=== PATIENT | male | born 1995 | race Caucasian/White ===

== ENCOUNTER → 2017-01-19 | Day surgery (SDC) | payer OTHER ==
[~2017-01-19] MED LIST: ACETAMINOPHEN 1000 MG/100 ML VIAL IV ONE; BUPIVACAINE/EPINEPHRINE 0.25% 50 ML VIAL ONE; KETOROLAC TROMETHAMINE 30 MG/ML (IVP) VIAL IV PUSH ONE; LACTATED RINGER'S 1000 ML INJ 1,000 ML ONE; MEPERIDINE HCL 25 MG/ML VIAL ONE; METHYLENE BLUE 100 MG/10 ML VIAL ONE; MIDAZOLAM HCL 2 MG/2 ML VIAL ONE; ONDANSETRON HCL 4 MG/2 ML VIAL IV PUSH ONE; PROPOFOL 200 MG/20 ML AMP IV ONE; ceFAZolin INJ 1,000 MG VIAL ONE
--- NOTE | 2017-01-19 11:07 | TN ---
cc: CHILANGO WHITFIELD M.D., JOHN C. DO DATE OF SURGERY: 01/19/2017 PREOPERATIVE DIAGNOSIS Pilonidal sinus. POSTOPERATIVE DIAGNOSIS Pilonidal sinus. PROCEDURE Excision of complex pilonidal. ANESTHESIA General. SURGEON Dr. Whitfield. AD OPERATIONS INTERN ALYCIA Marroquin The BRICK TOSSER was present from beginning to the end of the case assisting in all portions of the procedure. It was necessary to have this individual in the room to assist in the above surgical procedure. The surgical procedure was assisted by the BRICK TOSSER. The BRICK TOSSER presence was necessary throughout the case for appropriate retraction, dissection, visualization, and resection of the important anatomical structures during the surgical procedure. The BRICK TOSSER was assisting throughout the entirety of the operation. The skill set of the BRICK TOSSER is medically and surgically necessary to safely complete the surgical procedure. During the surgical case the operating room surgical resident was working instrument table and passing instruments to the attending surgeon and BRICK TOSSER The BRICK TOSSER was directly assisting the operating surgeon and involved in the technical aspects of the surgical case. INDICATIONS A pleasant gentleman who had an inflamed pilonidal cyst, it is settled down, plans were made for excision. Of note, it is off to the left of the midline requiring modification of the typical excision. PROCEDURE The patient was taken to the operating room, placed in the supine position. After anesthesia he is placed in the prone position. Pressure points were cushioned with soft cushions. We shaved the area and retract his gluteal muscles laterally with tape. We prepped with Betadine. Two ports can be seen, both are probed with the lacrimal probes. It does not appear to go too deep approximately a centimeter. We then placed a 20 gauge Angiocath in and instill some methylene blue to define the cavity. After this was done we then make an elliptical incision somewhat off to the left of the midline coursing inferiorly from the midline laterally to the left to excise the complete specimen. The excision measures 6 x 3 cm. We stay out of the blue cavity. No other gross abnormalities seen. We then irrigate. We elevate the flaps laterally to allow the deep tissue to be reapproximated with 3-0 Vicryl suture and skin is reapproximated with Nylon suture. Sterile bandage was applied. The patient tolerated the procedure well and had no immediate postop complications. Chilango Whitfield MD JSTU/TLL /10:40 AM /10:45 AM [place]
== END | disposition home or self-care (01) ==
LOC: ESDC 08:43
PROVIDERS: ATTEND Surgery
DX: L05.92 Pilonidal sinus without abscess (principal)
CPT/HCPCS: 00300; 11772; 88304; J0131; J0690; J1885; J2175; J2250; J2405; J3010; J7120